=== PATIENT | female | born 1985 | race American Indian/Alaskan Native ===

== ENCOUNTER 2021-07-25 23:02 | Emergency (ER) | payer MEDICAID ==
[2021-07-26 00:30] VITALS: BP 110/64
--- NOTE | 2021-07-26 00:41 | Emergency Department Report ---
ED General Adult HPI - General Chief complaint: Medical Clearance Stated complaint: MUSHROOM/BLACKMOLD EXPOSURE Time Seen by Provider: 07/26/21 00:38 Source: patient Mode of arrival: Ambulatory Limitations: No Limitations - History of Present Illness Initial comments: Patient is a 35-year-old female presents emergency room with complaints of a possible mold exposure. she states she believes she has mold in her home. She states that whenever she is in her home she has a headache and watery eyes. She states that when she leaves her home her symptoms improve. She has no symptoms currently. No past medical history. No allergies to medications. - Related Data Allergies Allergy/AdvReac Type Severity Reaction Status Date / Time No Known Allergies Allergy Unverified 07/26/21 00:16 ED Review of Systems ROS: Stated complaint: MUSHROOM/BLACKMOLD EXPOSURE Other details as noted in HPI Comment: All other systems reviewed and negative ED Past Medical Hx - Past Medical History Previous Medical History?: No - Surgical History Past Surgical History?: No ED Physical Exam - General Limitations: No Limitations General appearance: alert, in no apparent distress - Head Head exam: Present: atraumatic, normocephalic - Eye Eye exam: Present: normal appearance. Absent: conjunctival injection - Respiratory Respiratory exam: Present: normal lung sounds bilaterally. Absent: respiratory distress, wheezes, rales, rhonchi, stridor, chest wall tenderness, accessory muscle use, decreased breath sounds, prolonged expiratory - Cardiovascular Cardiovascular Exam: Present: regular rate, normal rhythm, normal heart sounds. Absent: systolic murmur, diastolic murmur, rubs, gallop - Neurological Exam Neurological exam: Present: alert, oriented X3 - Psychiatric Psychiatric exam: Present: normal affect, normal mood - Skin Skin exam: Present: warm, dry, intact ED Course Vital Signs 07/26/21 07/26/21 00:18 00:40 Temperature 98.8 F Pulse Rate 95 H 72 Respiratory 18 Rate Blood Pressure 110/64 O2 Sat by Pulse 100 100 Oximetry ED Medical Decision Making - Medical Decision Making Patient is a 35-year-old female presents emergency room with complaints of a possible mold exposure. she states she believes she has mold in her home. She states that whenever she is in her home she has a headache and watery eyes. She states that when she leaves her home her symptoms improve. She has no symptoms currently. No past medical history. No allergies to medications. Vitals are normal. No abnormality on physical examination as documented in chart. Breath sounds are clear bilaterally, no wheezing, no rales, no rhonchi. Advised patient Please follow-up with your primary care doctor. Return to emergency room for any new or worsening symptoms. Please discuss with your landlord about possible mold testing for your home. Critical care attestation.: If time is entered above; I have spent that time in minutes in the direct care of this critically ill patient, excluding procedure time. ED Disposition Clinical Impression: General medical exam Disposition: 01 HOME / SELF CARE / HOMELESS Is pt being admited?: No Does the pt Need Aspirin: No Condition: Stable Additional Instructions: Please follow-up with your primary care doctor. Return to emergency room for any new or worsening symptoms. Please discuss with your landlord about possible mold testing for your home. Referrals: BUDDY KOLB MD [Staff Physician] - 3-5 Days [facility] [Provider Group] - 3-5 Days Time of Disposition: 00:40 Print Language: [place]
== END 2021-07-26 01:03 | disposition home or self-care (01) ==
LOC: ED 23:02
DX: Z77.120 Contact with and (suspected) exposure to mold (toxic) (principal); R51.9 Headache, unspecified; Z00.01 Encounter for general adult medical examination with abnormal findings
CPT/HCPCS: 99281